=== PATIENT | male | born 1970 | race African-American/Black ===

== ENCOUNTER 2018-09-24 17:53 | Emergency (ER) | payer MEDICAID ==
[~2018-09-24] VITALS: Ht 182.9 cm; Wt 160.0 kg
[2018-09-24 20:04] VITALS: BP 187/119
== END 2018-09-24 20:08 | disposition home or self-care (01) ==
LOC: ER 18:15
DX: S16.1XXA Strain of muscle, fascia and tendon at neck level, initial encounter (principal); S40.012A Contusion of left shoulder, initial encounter; I10 Essential (primary) hypertension; V58.0XXA Driver of pick-up truck or van injured in noncollision transport accident in nontraffic accident, initial encounter; Y93.89 Activity, other specified; Y92.488 Other paved roadways as the place of occurrence of the external cause
CPT/HCPCS: 72040; 73030; 99283